=== PATIENT | male | born 1955 ===

== ENCOUNTER 2020-05-23 05:59 | Day surgery (SDC) | payer OTHER ==
[~2020-05-23 05:59] MED LIST: CARDIZEM CD180 M1 PO; COZAAR100 MG PO; CYMBALTA60 MG PO; FORTAMET1000 MG PO; LANTUS SOL100 UNIT/1; PLAVIX75 MG PO; PRAVAST PO; TOPR PO; WELLBUTRIN XL300 MG PO
== END 2020-05-23 12:25 | disposition home or self-care (01) ==
LOC: CIR LITO 05:59 → ADM 09:15 → CIR LITO 09:15
PROVIDERS: ATTEND Urology
DX: N20.0 Calculus of kidney (principal)